=== PATIENT | female | born 1950 ===

== ENCOUNTER 2020-07-22 05:45 | Day surgery (SDC) | payer OTHER ==
[~2020-07-22 05:45] MED LIST: ATENOLOL25 MG PO; ZESTRIL40 M1 PO
[2020-07-22] MEDS ORDERED: MORGIDOX100 MG PO (08:34)
[2020-07-22] MEDS ORDERED: IBUPROFEN600 MG PO (08:35)
== END 2020-07-22 14:00 | disposition home or self-care (01) ==
LOC: CIR.AMB 05:45
PROVIDERS: ATTEND Obstetrics & Gynecology
DX: D25.0 Submucous leiomyoma of uterus (principal); N84.0 Polyp of corpus uteri; Z20.828 Contact with and (suspected) exposure to other viral communicable diseases